=== PATIENT | male | born 1945 | race Caucasian/White ===

== ENCOUNTER 2018-07-02 18:41 | Inpatient (IN) | payer MEDICARE ==
[~2018-07-02] VITALS: Ht 172.7 cm; Wt 84.2 kg
--- NOTE | 2018-07-02 19:30 | NUR ---
ASSUMED CARE OF PATIENT, HE IS SITTING UP ON STRETCHER AT THIS TIME ON VENTIMASK, STATES HE IS BREATHING MUCH BETTER. WITHOUT DISTRESS AT THIS TIME, TRANSFERRED FROM [facility]. STATES HIS FAMILY IS ON THEIR WAY HERE. HAS A NECROTIC ARE TO HIS RIGHT ANKLE, FOOT ELEVATED UP ON A FOLDED BLANKET.
[2018-07-02 20:24] LABS: HEMATOCRIT 29.4 % (42.0-54.0); HEMOGLOBIN 9.2 g/dL (13.5-17.5); MCH 28.9 pg (26.0-34.0); MCHC 31.3 g/dL (31.0-37.0); MCV 92.5 fL (80.0-100.0); PLATELET COUNT 105 10x3/uL (130-400); RBC 3.18 10x6/uL (4.20-6.10); RDW 22.4 % (11.5-14.5); WBC 4.4 10x3/uL (4.8-10.8)
[2018-07-02 20:52] LABS: CKMB 3.3 U/L (0.0-3.6); CREATINE KINASE 99 UL (21-232); PRO BNP 4890 pg/mL (0-125)
[2018-07-02 20:57] LABS: TROPONIN-I 1.123 ng/mL (0.000-0.060)
[2018-07-02 21:01] VITALS: BP 101/41
[2018-07-02 21:21] LABS: EOSINOPHILS 1 % (0-7); LYMPHOCYTES 15 % (15-50); MONOCYTES 1 % (2-11); NEUTROPHILS 83 % (40-80); PLATELET ESTIMATE DECREASED
[2018-07-02 21:24] LABS: BURR CELLS 1+; ELLIPTOCYTES 1+
[2018-07-02 21:59] VITALS: BP 116/63
--- NOTE | 2018-07-02 22:00 | NUR ---
CALLED TO THE ROOM BY PATIENT, STATES HE IS HAVING CHEST PAIN A 4/10, EKG REPEATED, MD NOTIFIED, MORPHINE GIVEN.
--- NOTE | 2018-07-02 22:20 | NUR ---
PATIENT DENIES CHEST PAIN AT THIS TIME, FAMILY AT BEDSIDE.
--- NOTE | 2018-07-02 22:25 | NUR ---
ATTEMPTED TO CALL REPORT, WAS PUT ON HOLD FOR THE SECOND TIME.
--- NOTE | 2018-07-02 23:15 | NUR ---
THE PATIENT WAS RECEIVED FROM ED. PRESENT. BED IS IN THE LOW POSITION WITH SIDERAILS X2 AND CALL LIGHT WITHIN REACH. THE PATIENT AND HIS WERE EDUCATED ON EUSE OF A CALL LIGHT AND THE NEED TO CALL STAFF WHENEVER THE PATIENT NEEDS TO GET OUT OF BED. PATIENT AND HIS DEMONSTRATE UNDERSTANDING VIA TEACHBACK METHOD. THE PATIENT APPEARS COMFORTABLE WITH NO QUESTIONS OR CONCERNS AT THIS TIME.
[2018-07-02 23:25] VITALS: BP 117/61
--- NOTE | 2018-07-03 03:31 | NUR ---
PATIENT APPEARS TO BE SLEEPING. BED IS IN THE LOW POSITION WITH SIDERAILS X2 AND CALL LIGHT WITHIN REACH. REMAINS WITH THE PATIENT.
[2018-07-03 04:00] VITALS: BP 106/60
[2018-07-03 05:39] LABS: ANION GAP 20.5 mmol/L (8-16); CREATININE - SERUM 2.2 mg/dL (0.6-1.3); POTASSIUM - SERUM 4.5 mmol/L (3.5-5.1); THYROID STIMULATING HORMONE 0.76 uIU/mL (0.36-3.74)
[2018-07-03 06:06] LABS: CALCIUM 6.9 mg/dL (8.5-10.1); TROPONIN-I 0.619 ng/mL (0.000-0.060)
--- NOTE | 2018-07-03 09:00 | NUR ---
PT IN BED. ALERT AND ORIENTED. O2 AT 4L VIA NC. LEFT AC 20G IV SL. ST ON THE MONITOR. AT BEDSIDE. PT HAS NO FURTHER NEEDS AT THIS TIME.
[2018-07-03 10:15] VITALS: BP 105/61
[2018-07-03 11:46] LABS: % SATURATION 9 % (15-55); IRON 23 ug/dl (35-150); TOTAL IRON BIND CAPACITY 255 ug/dl (260-445); UNSAT IRON BIND CAPACITY 232 ug/dl (150-375)
[2018-07-03] MEDS ORDERED: NORVASC5 MG PO (11:50)
[2018-07-03] MEDS ORDERED: BAYER CHEWABLE81 MG PO (11:50)
[2018-07-03] MEDS ORDERED: LIPITOR80 MG PO (11:51)
[2018-07-03] MEDS ORDERED: PLAVIX75 MG PO (11:51)
[2018-07-03] MEDS ORDERED: ALDACTONE25 MG PO (11:52)
[2018-07-03] MEDS ORDERED: ENTRESTO 24 MG1 EACH PO (11:54)
[2018-07-03] MEDS ORDERED: TOPROL XL50 MG PO (11:55)
[2018-07-03] MEDS ORDERED: NITROSTAT0.4 MG SL (11:56)
[2018-07-03] MEDS ORDERED: ISOSORBIDE MONO60 M1 PO (11:58)
[2018-07-03] MEDS ORDERED: RANEXA1000 MG PO (11:58)
[2018-07-03] MEDS ORDERED: REVLIMID5 MG PO (11:59)
[2018-07-03] MEDS ORDERED: PROTONIX FOR OR40 MG PT (12:00)
[2018-07-03] MEDS ORDERED: GLUCOTROL 5 MG T5 MG PO (12:03)
[2018-07-03] MEDS ORDERED: NOVOLIN 70/30 110 ML SC (12:03)
[2018-07-03 12:04] LABS: CKMB 2.5 U/L (0.0-3.6); CREATINE KINASE 106 UL (21-232); FERRITIN 143 ng/mL (3-244)
[2018-07-03] MEDS ORDERED: MAG-OXIDE400 MG PO (12:04)
[2018-07-03] MEDS ORDERED: CO Q-10100 MG PO (12:04)
[2018-07-03] MEDS ORDERED: VITAMIN B-121000 MCG PO (12:05)
[2018-07-03] MEDS ORDERED: FEOSOL LIQ300 MG/5 M PO (12:06)
[2018-07-03 12:10] LABS: TROPONIN-I 0.563 ng/mL (0.000-0.060)
--- NOTE | 2018-07-03 12:21 | NUR ---
SPOKE WITH JAZMINE LANGLEY AND SHE STATES TO RESUME HOME MEDS BUT VITAMIN B-12, REVLMID, NORVASC, CO Q-10, AND NOVOLIN. SHE STATES TO CHANGE PT FROM LOW SLIDING SCALE TO HIGH SLIDING SCALE. I VERBALIZED UNDERSTANDING.
[2018-07-03 12:52] VITALS: Ht 172.7 cm; Wt 84.2 kg
--- NOTE | 2018-07-03 15:03 | EC ---
PATIENT:ANN ORTIZ DATE OF SERVICE: 07/02/18 SEX: M MEDICAL RECORD: [id number] DATE OF : 43 LOCATION:D.M2 D.210 AGE OF PATIENT: 73 ADMISSION DATE: 07/02/18 REFERRING PHYSICIAN: INTERPRETING PHYSICIAN: JORGE A PADGETT MD ECHOCARDIOGRAM REPORT ECHO CHARGES 4 ECHO COMPLETE Date: 07/03/18 CLINICAL DIAGNOSIS: CHF/SOB HX OF CAD/CABG ECHOCARDIOGRAPHIC MEASUREMENTS (adult normal given) AC root (d.<3.7cm) 3.3 cm LV Septum d (<1.2 cm> 1.3 cm Valve Excursion 1.3 cm LV Septum (systole) 1.5 cm Left Atria (s.<4.0cm> 5.7 cm LVPW d(<1.2cm) 1.5 cm RV (d.<2.3cm) 3.6 cm LVPW (sytole) 1.6 cm LV diastole(<5.6CM) 6.8 cm MV E-F(>70mm/sec) cm LV systole 5.7 cm LVOT Diameter 1.8 cm MV exc.(>10mm) 1.4 cm Est.ejection fraction (50-75%) % DOPPLER: LVIT cm/sec A 145 cm/sec E 36.0 cm/sec LA cm/sec RVSP 30 mmHg LVOT 110 cm/sec AOP1/2T m/s Asc. Ao 134 cm/sec RVOT cm/sec RA cm/sec PA cm/sec AV Gradient Peak 7.23 mmHg AV Mean 4.30 mmHg AV Area 1.9 cm MV Gradient Peak 11.70mmHg MV Mean 4.22 mmHg MV Area cm COMMENTS: Helpdesk Specialist: Mary GOLDEN Interactive Developer: 1 Dr. Padgett TAPE# PACS Pericardial Effusion N DATE OF SERVICE: 07/03/2018 ECHOCARDIOGRAM DATE OF SERVICE: 07/03/2018 FINDINGS: 1. Left ventricular chamber size is within normal limits. Left chamber size is mildly dilated. Left ventricular systolic function is jngj-fa-dyfjnbercc reduced, overall ejection fraction of 35% to 40%. ECHOCARDIOGRAM REPORT [id number] ANN ORTIZ 2. Left atrium is enlarged at 5.7 cm. Right atrium and right ventricular chamber sizes are as well mildly dilated. 3. Valvular structures have normal structure and motion. 4. Doppler interrogation reveals moderate mitral regurgitation, jhxv-cf-plzggvsv tricuspid regurgitation, no other valvular insufficiency or stenosis. Pulmonary systolic pressure is preserved at 30 mmHg. 5. No evidence of pericardial effusion or left ventricular thrombus. TRANSINT:[id number] Voice Confirmation ID: [id number] DOCUMENT ID: [id number] JORGE A PADGETT MD at 1503 CC: [id number] DICTATION DATE: 07/03/18 1324 CUSTOMER COMPLAINT SERVICE SUPERVISOR: 07/03/18 1339 ADM IN [place] [address] [place] [address]
--- NOTE | 2018-07-03 15:03 | CN ---
PATIENT NAME:ANN ORTIZ MEDICAL RECORD: [id number] : 43 LOCATION:D. D.2109 ADMIT DATE: 07/02/18 ACCOUNT: [id number] CONSULTING PHYSICIAN: JORGE A PEREZ MD REFERRING PHYSICIAN: RADHA MONROE MD DATE OF CONSULTATION: 07/03/2018 CARDIOLOGY CONSULTATION DATE OF SERVICE: 07/03/2018 DIAGNOSES: 1. Atrial fibrillation. 2. Tachycardia. 3. Shortness of breath. 4. Elevated troponin. 5. Peripheral vascular disease. 6. Nonhealing ulcer, right foot. 7. Multiple myeloma. 8. Renal insufficiency. 9. Hypotension. HISTORY OF PRESENT ILLNESS: This is a gentleman who presents to [facility] with shortness of breath, was transferred here. He has a history of multiple myeloma that is in remission. He has a history of atrial fibrillation. He is followed by Dr. Bright at [facility] [place]. He had a cardiac catheterization last year. This was normal. No cardiac intervention was undertaken. He did have peripheral interventions and still has a nonhealing ulcer on his right foot. He has had shortness of breath, but no significant chest pain. His troponin is elevated. His EKG has no ST-T changes. He is in atrial fibrillation with rapid ventricular response. He does not know his medications. He was given an IV amiodarone bolus here as well as oral amiodarone. PHYSICAL EXAMINATION: GENERAL APPEARANCE: Well-nourished, well-developed, appears stated age. Level of distress, comfortable. PSYCHIATRIC: Mental status, alert, normal affect. Orientation, oriented to time, place and person. EYES: Lids and conjunctiva, noninjected. No discharge, no pallor. ENT: Lips, teeth, gums, normal dentition. Oropharynx, no cyanosis, no pallor. NECK: Carotid arteries, bilateral normal upstroke, no bruits, no thrills. JUGULAR VEINS: No jugular venous pressure or distention. CERVICAL LYMPH NODES: Nontender, nonenlarged. THYROID: Not enlarged. Nontender. No nodules. LUNGS: Respiratory effort, unlabored. CHEST: Normal curvature. No thoracic deformity. No chest wall tenderness. Percussion, resonant. Auscultation, clear. No wheezes, no rales, no rhonchi. CARDIOVASCULAR: Precordial exam, nondisplaced. No heaves or pericardial thrills. Rate and rhythm, regular. Heart sounds, normal S1, normal S2. No S3, no gallop, no rub. Systolic murmur, not heard. Diastolic murmur, not heard. EXTREMITIES: No cyanosis, no edema. Peripheral pulses, full and equal in all extremities, except as noted. No bruits appreciated. ABDOMEN: Soft, nondistended. Normal aorta. No bruit. Nontender. No masses. Liver, nontender, no hepatomegaly. Spleen, nontender, no splenomegaly. MUSCULOSKELETAL: No joint tenderness. No joint swelling. No erythema. CONSULT REPORT [id number] ANN ORTIZ NEUROLOGICAL: Normal gait, normal strength, normal tone. SKIN: Warm and dry. OVERALL IMPRESSION: Atrial fibrillation with his hypotension with systolic blood pressures in the 90s. We will use digoxin for rate control 0.5 mg IV times 1. We will discontinue the amiodarone. The atrial fibrillation is not acute, it is chronic. With the elevated troponin, we would not proceed with coronary angiography, not only from the risk of contrast but the fact that he had coronary angiography within the last year and no cardiac intervention was undertaken. He is still followed at [facility] for his peripheral vascular disease, which he still has a nonhealing ulcer on his right lower extremity. We would not subject him to acute revascularization at this time. We will get an echocardiogram for overall left ventricular assessment. Would only center medical management from a cardiac standpoint on treatment of the atrial fibrillation, rate control. TRANSINT:[id number] Voice Confirmation ID: [id number] DOCUMENT ID: [id number] JORGE A PEREZ MD at 1503 CC: [id number] DICTATION DATE: 07/03/18 0825 ORDER CHECKER: 07/03/18 1119 ADM IN [facility] [address] [place] [address]
[2018-07-03 16:41] LABS: CKMB 2.4 U/L (0.0-3.6); CREATINE KINASE 105 UL (21-232)
[2018-07-03 16:43] LABS: TROPONIN-I 0.507 ng/mL (0.000-0.060)
--- NOTE | 2018-07-03 17:30 | NUR ---
CALLED MEAT AND SEAFOOD MANAGER AND SHE STATES SHE WILL BRING SCD MACHINE.
[2018-07-03 17:36] VITALS: BP 114/63
[2018-07-03 20:00] VITALS: BP 104/60
--- NOTE | 2018-07-03 20:50 | NUR ---
RESUMING PT CARE. PT ALERT LAYING IN BED. IS AT BEDSIDE. NO C/O VOICED. NO ACUTE S/S OF DISTRESS NOTED AT THIS TIME. BED IN LOW POSITION WITH CALL LIGHT IN REACH. WILL CONTINUE TO MONITOR PT AND FOLLOW PLAN OF CARE.
[2018-07-03 22:21] LABS: CKMB 2.3 U/L (0.0-3.6); CREATINE KINASE 108 UL (21-232)
[2018-07-03 22:33] LABS: TROPONIN-I 0.504 ng/mL (0.000-0.060)
[2018-07-04] VITALS: BP 102/54
[2018-07-04 00:38] LABS: APPEARANCE CLEAR (CLEAR); BILIRUBIN NEGATIVE (NEGATIVE); COLOR YELLOW (YELLOW); GLUCOSE 250 mg/dL (NEGATIVE); KETONE NEGATIVE (NEGATIVE); NITRITE NEGATIVE (NEGATIVE); PROTEIN NEGATIVE (NEGATIVE); SPECIFIC GRAVITY 1.015 (1.005-1.020); UROBILINOGEN NORMAL (NORMAL)
--- NOTE | 2018-07-04 02:48 | NUR ---
I have reviewed this patient and I concur with the Shift Assessment completed by the Licensed Practical Nurse today this shift.
[2018-07-04 04:00] VITALS: BP 98/55
[2018-07-04 05:40] LABS: HEMATOCRIT 26.9 % (42.0-54.0); HEMOGLOBIN 8.4 g/dL (13.5-17.5); MCH 28.7 pg (26.0-34.0); MCHC 31.2 g/dL (31.0-37.0); MCV 91.8 fL (80.0-100.0); PLATELET COUNT 90 10x3/uL (130-400); RBC 2.93 10x6/uL (4.20-6.10)
[2018-07-04 05:42] LABS: ANION GAP 16.6 mmol/L (8-16); POTASSIUM - SERUM 4.6 mmol/L (3.5-5.1)
[2018-07-04 05:54] LABS: CALCIUM 6.7 mg/dL (8.5-10.1)
[2018-07-04 07:05] LABS: LYMPHOCYTES 17 % (15-50); MONOCYTES 5 % (2-11); NEUTROPHILS 78 % (40-80); PLATELET ESTIMATE DECREASED
--- NOTE | 2018-07-04 07:30 | NUR ---
RECEIVED A/A/OX4. DENIES ANY PAIN OR DISCOMFORT AND VOICES NO REQUESTS. ASSESSMENT COMPLETED. BED LOCKED IN LOW POSITION, SIDERAILS UP X 2 AND CALL LIGHT IN REACH. AT BEDSIDE. NO APPARENT NEW PROBLEMS. WILL CONTINUE POC.
[2018-07-04 08:50] VITALS: BP 111/56
[2018-07-04 09:12] LABS: FOLATE (FOLIC ACID) - SERUM >20.0 ng/mL (>3.0)
--- NOTE | 2018-07-04 14:03 | NUR ---
I have reviewed this patient and I concur with the Shift Assessment completed by the Licensed Practical Nurse today this shift.
[2018-07-04 14:47] VITALS: BP 109/58
--- NOTE | 2018-07-04 16:07 | NUR ---
PT INSTRUCTED ON NEW ORDER FOR STRICT I/O. URINAL PLACED IN BR FOR USE.
[2018-07-04 18:45] VITALS: BP 107/46
--- NOTE | 2018-07-04 19:00 | NUR ---
ALERT/AWAKE ORIENTED X4. DENIES PAIN OR ANY NEEDS. RR 20 EVEN U/L ON 02 AT 4L/NC. HIS IS PRESENT IN ROOM. NO QUESTIONS OR CONCERNS VOICED. ORIENTED TO CALL LIGHT FOR ANY NEEDS.
[2018-07-04 20:00] VITALS: BP 118/49
--- NOTE | 2018-07-04 23:42 | NUR ---
REQUESTED LIGHTS OFF AND DOOR CLOSED TO SLEEP. NO OTHER NEEDS VOICED.
[2018-07-05] VITALS: BP 91/56
[2018-07-05 04:52] LABS: BASOPHILS 0.3 % (0-2); EOSINOPHILS 0 % (0-7); HEMATOCRIT 28.1 % (42.0-54.0); HEMOGLOBIN 8.6 g/dL (13.5-17.5); IMMATURE GRANULOCYTES 2.3 % (0-5); LYMPHOCYTES 24.8 % (15-50); MCH 28.6 pg (26.0-34.0); MCHC 30.6 g/dL (31.0-37.0); MCV 93.4 fL (80.0-100.0); MONOCYTES 18.2 % (2-11); NEUTROPHILS 54.4 % (40-80); PLATELET COUNT 88 10x3/uL (130-400); RBC 3.01 10x6/uL (4.20-6.10); RDW 21.6 % (11.5-14.5); WBC 3.9 10x3/uL (4.8-10.8)
[2018-07-05 04:59] LABS: ANION GAP 15.2 mmol/L (8-16); CREATININE - SERUM 1.7 mg/dL (0.6-1.3); POTASSIUM - SERUM 5.2 mmol/L (3.5-5.1)
[2018-07-05 05:01] LABS: CALCIUM 6.7 mg/dL (8.5-10.1)
[2018-07-05 05:08] VITALS: BP 122/66
--- NOTE | 2018-07-05 05:45 | NUR ---
SITTING ON SIDE OF BED READING. ADMIN SCHED PO MED. DENIES ANY NEEDS OR DISCOMFORTS. HIS IS PRESENT IN ROOM.
--- NOTE | 2018-07-05 07:14 | NUR ---
PATIENT AWAKE AND ORIENTED, PROMISES TO BENICE AND NOT GICE ME A HARD TIME TODAY. NO QUESTIONS/CONCERNS/COMMENTS AT THIS TIME. CL IN REACH. SRX2.
--- NOTE | 2018-07-05 08:53 | NUR ---
PT STATES HE IS HAVING CHEST PAIN. IT'S IN CHEST RADIATING TO L. ARM. V/S: 100% 02, 138/67, 126, 22. AFLUTTER ON MONITOR.
[2018-07-05 09:04] VITALS: BP 123/67
--- NOTE | 2018-07-05 09:50 | NUR ---
I have reviewed this patient and I concur with the Shift Assessment completed by the Licensed Practical Nurse today this shift.
[2018-07-05 11:11] VITALS: BP 136/73
[2018-07-05 16:42] VITALS: BP 103/37
--- NOTE | 2018-07-05 17:25 | NUR ---
PT OBTAINED SKIN TEAR ON RIGHT UPPER ARM, DRESSED WITH NON ADHESIVE. STATES HE DOES'NT KNOW HOW HE GOT IT, BUT THIS HAPPENS OFTEN.
--- NOTE | 2018-07-05 19:38 | NUR ---
SITTING ON SIDE OF BED. ALERT/ORIENTED X4. RR 20 EVEN U/L ON 02 AT 4L/NC. IV IN L AC INTACT SL. RT HEEL DRSG C/D/I. STATED HE HAS BEEN KEEPING IT ON PILLOW WHEN LAYING IN BED. DENIES ANY NEEDS.
[2018-07-05 20:04] VITALS: BP 95/66
[2018-07-06 00:36] VITALS: BP 110/53
--- NOTE | 2018-07-06 04:26 | NUR ---
MANAGER PHARMACEUTICAL PRESENT IN ROOM TAKING VS. DENIES ANY NEEDS. HIS IS PRESENT IN ROOM SLEEPING IN RECLINER.
[2018-07-06 04:35] VITALS: BP 111/69
[2018-07-06 05:59] LABS: HEMATOCRIT 28.3 % (42.0-54.0); HEMOGLOBIN 8.8 g/dL (13.5-17.5); MCH 28.9 pg (26.0-34.0); MCHC 31.1 g/dL (31.0-37.0); MCV 92.8 fL (80.0-100.0); PLATELET COUNT 89 10x3/uL (130-400); RBC 3.05 10x6/uL (4.20-6.10); RDW 21.1 % (11.5-14.5); WBC 4.3 10x3/uL (4.8-10.8)
[2018-07-06 06:14] LABS: ANION GAP 14.2 mmol/L (8-16); CARBON DIOXIDE 24.3 mmol/L (21.0-32.0); CREATININE - SERUM 1.6 mg/dL (0.6-1.3); POTASSIUM - SERUM 5.5 mmol/L (3.5-5.1)
[2018-07-06 06:24] LABS: CALCIUM 6.8 mg/dL (8.5-10.1)
[2018-07-06 07:00] VITALS: BP 102/57
[2018-07-06 08:53] LABS: EOSINOPHILS 1 % (0-7); LYMPHOCYTES 22 % (15-50); MONOCYTES 11 % (2-11); NEUTROPHILS 58 % (40-80); PLATELET ESTIMATE DECREASED
[2018-07-06 08:54] LABS: ACANTHOCYTES OCC; CRENATED CELLS 1+; ELLIPTOCYTES OCC; SCHISTOCYTES OCC
[2018-07-06] MEDS ORDERED: TOPROL XL50 MG PO (13:21)
[2018-07-06] MEDS ORDERED: ALBUTEROL SULF8.5 GM INH (14:00)
--- NOTE | 2018-07-06 14:27 | MORECARE ---
CASE MANAGEMENT DISCHARGE SUMMARY PATIENT: ANN ORTIZ UNIT: [id number] ADM DATE: 07/02/18 AGE: 73 : 44 SEX: M ROOM/BED: D.2109 AUTHOR: JUAN ANTONIO ARNOLD PHYSICIAN: REFERRING PHYSICIAN: RADHA MONROE MD DATE OF SERVICE: 07/06/18 Discharge Plan Patient Name: ANN ORTIZ Facility: [facility]:[place] : 1945 Planned Disposition: Home Anticipated Discharge Date: 07/06/18 Discharge Date: Expected LOS: 4 Initial Reviewer: [email or web address] Initial Review Date: 07/06/2018 Generated: 07/06/18 3:27 pm DCPIA - Discharge Planning Initial Assessment Updated by SCOTT: Romeo Olivarez on 07/06/18 2:25 pm * Is the patient Alert and Oriented? Yes * How many steps to enter\exit or inside your home? * PCP DR. ANN IN [place] * Pharmacy [facility] [place] * Preadmission Environment Home with Family * ADLs Independent * Equipment Walker * Other Equipment [facility] PATIENT - PREFERRED PROVIDER * List name and contact numbers for known caregivers / representatives who currently or will assist patient after discharge: JENNIFER ORTIZ, SPOUSE, * Verbal permission to speak to the caregivers and representatives has been obtained from the patient. N/A * Community resources currently utilized None * Please name any agencies selected above. NONE * Additional services required to return to the preadmission environment? Yes * Can the patient safely return to the preadmission environment? Yes * Has this patient been hospitalized within the prior 30 days at any hospital? No Coverage Notice Reviewer: [id number] Olivarez Notice Issued Date-Time: 07/06/2018 14:10 Notice Type: IM Discharge Notice Notice Delivered To: Patient Relationship to Patient: Fiberglass Boat Parts Finisher Name: Delivery Method: HAND - Hand Delivered Shilpa Days: Prior Verbal Notification: Recipient Understood Notice: Yes Recipient Signature: Yes Med Rec Note Co-signed by Attending: Coverage Notice Comment: Reviewer: [id number] Olivarez Notice Issued Date-Time: 07/06/2018 14:10 Notice Type: Patient Choice Letter Notice Delivered To: Patient Relationship to Patient: Fiberglass Boat [employer] Finisher Name: Delivery Method: HAND - Hand Delivered Shilpa Days: Prior Verbal Notification: Recipient Understood Notice: Yes Recipient Signature: Yes Med Rec Note Co-signed by Attending: Coverage Notice Comment: CITIZEN OF [facility] PATIENT Patient Name: ANN ORTIZ Page [id number] at 1427 All edits/amendments must be made on the electronic document DICTATION DATE: 07/06/181426 ACADEMIC COMPUTING DIRECTOR: ARNULFO 07/06/181426 RPT#: [id number] DC DATE: STATUS: ADM IN [facility] [address] [place] [address] END OF REPORT
--- NOTE | 2018-07-06 14:35 | MORECARE ---
CASE MANAGEMENT DISCHARGE SUMMARY PATIENT: ANN ORTIZ UNIT: [id number] ADM DATE: 07/02/18 AGE: 73 : 44 SEX: M ROOM/BED: D.2186 AUTHOR: CLAYTONDOC PHYSICIAN: REFERRING PHYSICIAN: RADHA MONROE MD DATE OF SERVICE: 07/06/18 Discharge Plan Patient Name: ANN ORTIZ Facility: [facility]:[place] : 1945 Planned Disposition: Home Anticipated Discharge Date: 07/06/18 Discharge Date: Expected LOS: 4 Initial Reviewer: [email or web address] Initial Review Date: 07/06/2018 Generated: 07/06/18 3:35 pm Comments DCP- Discharge Planning Updated by [email or web address]: Romeo Olivarez on 07/06/18 1:[address] Patient Name: ANN ORTIZ Admission Status: ER Accout number: [id number] Admission Date: 07-02-2018 : 1945 Admission Diagnosis:SHORTNESS OF BREATH Attending: RADHA MONROE Current LOS: 4 Anticipated DC Date: 07-06-2018 Planned Disposition: Home Primary Insurance: [facility] MEDICARE SOLUTIONS Discharge Planning Comments: CM MET WITH PT AND SPOUSE IN ROOM TO DISCUSS DISCHARGE PLANNING AND NEEDS. ANN ORTIZ provided verbal consent to discuss current and ongoing needs with/in the presence of: SPOUSE, JENNIFER. PT REPORTS LIVING AT HOME INDEPENDENTLY WITH SPOUSE. PT HAS WALKER WITH NO MEDICAL EQUIPMENT PROVIDER PREFERENCE. PT H NO OUTSIDE SERVICES ASSISTING IN THE HOME. CM DISCUSSED AVAILABILITY OF HOME HEALTH, REHAB SERVICES AND MEDICAL EQUIPMENT. PT DENIES DISCHARGE NEEDS OTHER THAN OXYGEN; PT PROVIDED LISTING OF MEDICAL EQUIPMENT PROVIDERS, PT SIGNED CHOICE FOR [facility]IENT, REPORTS HIS WILL PICK HIM UP FOR DISCHARGE HOME TODAY. IMPORTANT MESSAGE FROM MEDICARE PROVIDED AND EXPLAINED. CM WAITING OXYGEN TESTING RESULTS AND IF QUALIFIES, WILL ARRANGE OXYGEN WITH [facility] FOR DISCHARGE HOME TODAY. Petroleum Engineer: Romeo Olivarez DCPIA - Discharge Planning Initial Assessment Updated by [id number]: Romeo Olivarez on 07/06/18 2:25 pm * Is the patient Alert and Oriented? Yes * How many steps to enter\exit or inside your home? * PCP DR. ANN IN [place] * Pharmacy [facility] [place] * Preadmission Environment Home with Family * ADLs Independent * Equipment Walker * Other Equipment [facility] PATIENT - PREFERRED PROVIDER * List name and contact numbers for known caregivers / representatives who currently or will assist patient after discharge: JENNIFER ORTIZ, SPOUSE, * Verbal permission to speak to the caregivers and representatives has been obtained from the patient. N/A * Community resources currently utilized None * Please name any agencies selected above. NONE * Additional services required to return to the preadmission environment? Yes * Can the patient safely return to the preadmission environment? Yes * Has this patient been hospitalized within the prior 30 days at any hospital? No Coverage Notice Reviewer: [email or web address] Olivarez Notice Issued Date-Time: 07/06/2018 14:10 Notice Type: IM Discharge Notice Notice Delivered To: Patient Relationship to Patient: Hot Car Charger Name: Delivery Method: HAND - Hand Delivered Shilpa Days: Prior Verbal Notification: Recipient Understood Notice: Yes Recipient Signature: Yes Med Rec Note Co-signed by Attending: Coverage Notice Comment: Reviewer: SCOTT Olivarez Notice Issued Date-Time: 07/06/2018 14:10 Notice Type: Patient Choice Letter Notice Delivered To: Patient Relationship to Patient: Hot Car Charger Name: Delivery Method: HAND - Hand Delivered Shilpa Days: Prior Verbal Notification: Recipient Understood Notice: Yes Recipient Signature: Yes Med Rec Note Co-signed by Attending: Coverage Notice Comment: [facility] PATIENT Last DP export: 07/06/18 1:27 pm Patient Name: ANN ORTIZ Page [phone] at 1435 All edits/amendments must be made on the electronic document DICTATION DATE: 07/06/181433 DIRECTOR INTELLIGENCE ANALYSIS PROGRAMS: ARNULFO 07/06/18 143 RPT#: [id number] DC DATE: STATUS: ADM IN [facility] [address] [place] [address] END OF REPORT
--- NOTE | 2018-07-06 15:02 | MORECARE ---
CASE MANAGEMENT DISCHARGE SUMMARY PATIENT: ANN ORTIZ UNIT: [id number] ADM DATE: 07/02/18 AGE: 73 : 44 SEX: M ROOM/BED: D.2109 AUTHOR: JUAN ANTONIO ARNOLD PHYSICIAN: REFERRING PHYSICIAN: RADHA MONROE MD DATE OF SERVICE: 07/06/18 Discharge Plan Patient Name: ANN ORTIZ Facility: [facility]:[place] : 1945 Planned Disposition: Home Anticipated Discharge Date: 07/06/18 Discharge Date: Expected LOS: 4 Initial Reviewer: [email or web address] Initial Review Date: 07/06/2018 Generated: 07/06/18 4:02 pm Comments DCP- Discharge Planning Updated by [email or web address]: Romeo Vázquez on 07/06/18 1:[address] Patient Name: ANN ORTIZ Admission Status: ER Accout number: [id number] Admission Date: 07-02-2018 : 1945 Admission Diagnosis:SHORTNESS OF BREATH Attending: RADHA MONROE Current LOS: 4 Anticipated DC Date: 07-06-2018 Planned Disposition: Home Primary Insurance: [facility] MEDICARE SOLUTIONS Discharge Planning Comments: CM MET WITH PT AND SPOUSE IN ROOM TO DISCUSS DISCHARGE PLANNING AND NEEDS. ANN ORTIZ provided verbal consent to discuss current and ongoing needs with/in the presence of: SPOUSE, JENNIFER. PT REPORTS LIVING AT HOME INDEPENDENTLY WITH SPOUSE. PT HAS WALKER WITH NO MEDICAL EQUIPMENT PROVIDER PREFERENCE. PT H NO OUTSIDE SERVICES ASSISTING IN THE HOME. CM DISCUSSED AVAILABILITY OF HOME HEALTH, REHAB SERVICES AND MEDICAL EQUIPMENT. PT DENIES DISCHARGE NEEDS OTHER THAN OXYGEN; PT PROVIDED LISTING OF MEDICAL EQUIPMENT PROVIDERS, PT SIGNED CHOICE FOR [facility], REPORTS HIS WILL PICK HIM UP FOR DISCHARGE HOME TODAY. IMPORTANT MESSAGE FROM MEDICARE PROVIDED AND EXPLAINED. CM WAITING OXYGEN TESTING RESULTS AND IF QUALIFIES, WILL ARRANGE OXYGEN WITH [facility] FOR DISCHARGE HOME TODAY. Suspect Artist: Romeo Vázquez Appended by Romeo Vázquez on 07/06/2018 14:52 CDT: CM SPOKE TO RESPIRATORY THERAPY, PT DID NOT QUALIFY FOR HOME OR PORTABLE OXYGEN. NO FURTHER DISCHARGE NEEDS IDENTIFIED. ROMEO VÁZQUEZ CASE RONAL DCPIA - Discharge Planning Initial Assessment Updated by [email or web address]: Romeo Vázquez on 07/06/18 2:25 pm * Is the patient Alert and Oriented? Yes * How many steps to enter\exit or inside your home? * PCP DR. ANN IN [place] * Pharmacy [facility] [place] * Preadmission Environment Home with Family * ADLs Independent * Equipment Walker * Other Equipment [facility] PATIENT - PREFERRED PROVIDER * List name and contact numbers for known caregivers / representatives who currently or will assist patient after discharge: JENNIFER ORTIZ, SPOUSE, * Verbal permission to speak to the caregivers and representatives has been obtained from the patient. N/A * Community resources currently utilized None * Please name any agencies selected above. NONE * Additional services required to return to the preadmission environment? Yes * Can the patient safely return to the preadmission environment? Yes * Has this patient been hospitalized within the prior 30 days at any hospital? No Coverage Notice Reviewer: [id number] Adán Vázquez Notice Issued Date-Time: 07/06/2018 14:10 Notice Type: IM Discharge Notice Notice Delivered To: Patient Relationship to Patient: Press Maintainer Name: Delivery Method: HAND - Hand Delivered Shilpa Days: Prior Verbal Notification: Recipient Understood Notice: Yes Recipient Signature: Yes Med Rec Note Co-signed by Attending: Coverage Notice Comment: Reviewer: [id number] Adán Vázquez Notice Issued Date-Time: 07/06/2018 14:10 Notice Type: Patient Choice Letter Notice Delivered To: Patient Relationship to Patient: Press Maintainer Name: Delivery Method: HAND - Hand Delivered Shilpa Days: Prior Verbal Notification: Recipient Understood Notice: Yes Recipient Signature: Yes Med Rec Note Co-signed by Attending: Coverage Notice Comment: [facility] PATIENT Last DP export: 07/06/18 1:35 pm Patient Name: ANN ORTIZ Page [phone] at 1502 All edits/amendments must be made on the electronic document DICTATION DATE: 07/06/18 1501 CENTRAL STERILIZATION TECHNICIAN: ARNULFO 07/06/18 1501 RPT#: [id number] DC DATE: STATUS: ADM IN [facility] [address] [place] [address] END OF REPORT
== END 2018-07-06 15:52 | disposition home or self-care (01) | DRG 291 ==
LOC: D.ER 18:41 → D.EDHOLD 21:12 → D.M2 21:12
PROVIDERS: Emergency Medicine; ADMIT Internal Medicine Nephrology; ATTEND Internal Medicine Nephrology
DX: I13.0 Hypertensive heart and chronic kidney disease with heart failure and stage 1 through stage 4 chronic kidney disease, or unspecified chronic kidney disease (principal); J18.9 Pneumonia, unspecified organism; J96.01 Acute respiratory failure with hypoxia; I50.33 Acute on chronic diastolic (congestive) heart failure; I48.92 Unspecified atrial flutter; J44.1 Chronic obstructive pulmonary disease with (acute) exacerbation; L97.429 Non-pressure chronic ulcer of left heel and midfoot with unspecified severity; J44.0 Chronic obstructive pulmonary disease with (acute) lower respiratory infection; I48.91 Unspecified atrial fibrillation; E11.22 Type 2 diabetes mellitus with diabetic chronic kidney disease; N18.2 Chronic kidney disease, stage 2 (mild); D50.9 Iron deficiency anemia, unspecified; E78.5 Hyperlipidemia, unspecified; I25.10 Atherosclerotic heart disease of native coronary artery without angina pectoris; E11.51 Type 2 diabetes mellitus with diabetic peripheral angiopathy without gangrene; E11.621 Type 2 diabetes mellitus with foot ulcer; Z85.79 Personal history of other malignant neoplasms of lymphoid, hematopoietic and related tissues

== ENCOUNTER 2018-07-24 15:19 | Observation (INO) | payer MEDICARE ==
[~2018-07-24] VITALS: Ht 172.7 cm; Wt 75.8 kg
[~2018-07-24 15:19] MED LIST: ALBUTEROL SULF8.5 GM INH; ALDACTONE25 MG PO; BAYER CHEWABLE81 MG PO; CO Q-10100 MG PO; ENTRESTO 24 MG1 EACH PO; FEOSOL LIQ300 MG/5 M PO; GLUCOTROL 5 MG T5 MG PO; ISOSORBIDE MONO60 M1 PO; LIPITOR80 MG PO; MAG-OXIDE400 MG PO; NITROSTAT0.4 MG SL; NORVASC5 MG PO; NOVOLIN 70/30 110 ML SC; PLAVIX75 MG PO; PROTONIX FOR OR40 MG PT; RANEXA1000 MG PO; REVLIMID5 MG PO; TOPROL XL50 MG PO; VITAMIN B-121000 MCG PO
[2018-07-24 15:53] LABS: EOSINOPHILS 2.8 % (0-7); HEMATOCRIT 32.9 % (42.0-54.0); HEMOGLOBIN 10.6 g/dL (13.5-17.5); LYMPHOCYTES 36.1 % (15-50); MCH 29.1 pg (26.0-34.0); MCHC 32.2 g/dL (31.0-37.0); MCV 90.4 fL (80.0-100.0); MEAN PLATELET VOLUME 10.4 fL (7.4-10.4); NEUTROPHILS 51.1 % (40-80); RBC 3.64 10x6/uL (4.20-6.10); RDW 17.6 % (11.5-14.5); WBC 6.2 10x3/uL (4.8-10.8)
[2018-07-24 16:12] LABS: ALBUMIN 3.2 g/dL (3.4-5.0); ALKALINE PHOSPHATASE 52 U/L (46-116); ALT (SGPT) 24 U/L (10-68); BILIRUBIN - TOTAL 0.36 mg/dL (0.2-1.3); CALC OSMOLALITY 284 mosm/kg (275-300); CALCIUM 7.9 mg/dL (8.5-10.1); CARBON DIOXIDE 22.5 mmol/L (21.0-32.0); CHLORIDE - SERUM 108 mmol/L (98-107); CREATININE - SERUM 1.3 mg/dL (0.6-1.3); GLUCOSE 106 mg/dL (74-106); POTASSIUM - SERUM 3.3 mmol/L (3.5-5.1); PROTEIN - SERUM 6.3 g/dL (6.4-8.2); SODIUM 142 mmol/L (136-145); UREA NITROGEN 17 mg/dL (7-18); eGFR NON AFRICAN AMERICAN 57 mL/min (90-120)
[2018-07-24 16:24] LABS: CKMB 1.1 U/L (0.0-3.6); CREATINE KINASE 30 UL (21-232); PLATELET COUNT 113 10x3/uL (130-400); TROPONIN-I 0.023 ng/mL (0.000-0.060)
[2018-07-24 17:20] VITALS: BP 105/52
[2018-07-24 18:30] VITALS: BP 104/56
[2018-07-24] MEDS ORDERED: CLARITIN 10 MG10 MG PO (19:58)
[2018-07-24 19:59] VITALS: BP 105/59; BMI 25.6
[2018-07-24 20:58] VITALS: BP 116/55
[2018-07-25 00:56] VITALS: BP 118/48
[2018-07-25 05:07] LABS: HEMATOCRIT 31.4 % (42.0-54.0); MCH 29.2 pg (26.0-34.0); MCHC 31.8 g/dL (31.0-37.0); MCV 91.8 fL (80.0-100.0); MEAN PLATELET VOLUME 11.6 fL (7.4-10.4); PLATELET COUNT 123 10x3/uL (130-400); RBC 3.42 10x6/uL (4.20-6.10); RDW 17.7 % (11.5-14.5); WBC 5.1 10x3/uL (4.8-10.8)
[2018-07-25 05:18] LABS: EOSINOPHILS 3 % (0-7); LYMPHOCYTES 35 % (15-50); MONOCYTES 10 % (2-11); NEUTROPHILS 50 % (40-80); PLATELET ESTIMATE NORMAL
[2018-07-25 05:33] LABS: ANION GAP 14.2 mmol/L (8-16); CALCIUM 7.8 mg/dL (8.5-10.1); CARBON DIOXIDE 23.3 mmol/L (21.0-32.0); CREATININE - SERUM 1.4 mg/dL (0.6-1.3); MAGNESIUM - SERUM 1.5 mg/dL (1.8-2.4); PHOSPHOROUS 3.3 mg/dL (2.5-4.9); POTASSIUM - SERUM 3.5 mmol/L (3.5-5.1); TROPONIN-I 0.042 ng/mL (0.000-0.060)
[2018-07-25 09:12] VITALS: BP 144/57
[2018-07-25 11:25] VITALS: Ht 172.7 cm; Wt 75.8 kg
[2018-07-25 12:54] VITALS: BP 117/55
--- NOTE | 2018-07-25 16:12 | MORECARE ---
CASE MANAGEMENT DISCHARGE SUMMARY PATIENT: ANN ORTIZ UNIT: [id number] ADM DATE: 07/24/18 AGE: 73 : 44 SEX: M ROOM/BED: D.2125 AUTHOR: JUAN ANTONIO ARNOLD PHYSICIAN: REFERRING PHYSICIAN: KATE SIMMONS MD DATE OF SERVICE: 07/25/18 Discharge Plan Patient Name: ANN ORTIZ Facility: [facility]:[place] : 1945 Planned Disposition: Home Anticipated Discharge Date: 07/25/18 Discharge Date: Expected LOS: 1 Initial Reviewer: [email or web address] Initial Review Date: 07/24/2018 Generated: 07/25/18 5:12 pm Patient Name: ANN ORTIZ Page [phone] at 1612 All edits/amendments must be made on the electronic document DICTATION DATE: 07/25/18 161 MOVIE STUNT PERFORMER: ARNULFO 07/25/18 161 RPT#: [id number] DC DATE: STATUS: ADM IN [facility] [address] [place] [address] END OF REPORT
--- NOTE | 2018-07-25 16:19 | MORECARE ---
CASE MANAGEMENT DISCHARGE SUMMARY PATIENT: ANN ORTIZ UNIT: [id number] ADM DATE: 07/24/18 AGE: 73 : 44 SEX: M ROOM/BED: D.2125 AUTHOR: JUAN ANTONIO ARNOLD PHYSICIAN: REFERRING PHYSICIAN: KATE SIMMONS MD DATE OF SERVICE: 07/25/18 Discharge Plan Patient Name: ANN ORTIZ Facility: [facility]:[place] : 1945 Planned Disposition: Home Anticipated Discharge Date: 07/25/18 Discharge Date: 07/25/2018 Expected LOS: 1 Initial Reviewer: [email or web address] Initial Review Date: 07/24/2018 Generated: 07/25/18 5:19 pm DCPIA - Discharge Planning Initial Assessment Updated by [email or web address]: Sadie Jarrett on 07/25/18 4:14 pm * Is the patient Alert and Oriented? Yes * PCP DR ANN IN [place] * Pharmacy [facility] in [place] * Preadmission Environment Home with Family * ADLs Independent * Equipment Rolling Walker * Other Equipment denies any other DME * List name and contact numbers for known caregivers / representatives who currently or will assist patient after discharge: Lorena Ortiz- - [phone] * Verbal permission to speak to the caregivers and representatives has been obtained from the patient. Yes * Community resources currently utilized None * Please name any agencies selected above. n/a * Additional services required to return to the preadmission environment? No * Can the patient safely return to the preadmission environment? Yes * Has this patient been hospitalized within the prior 30 days at any hospital? Yes Last DP export: 07/25/18 3:12 p Patient Name: ANN ORTIZ Page [phone] at 1619 All edits/amendments must be made on the electronic document DICTATION DATE: 07/25/181617 ROTARY ROCK DRILLING MACHINE OPERATOR: ARNULFO 07/25/181617 RPT#: [id number] DC DATE:07/25/18 STATUS: DIS IN [facility] [address] [place] [address] END OF REPORT
--- NOTE | 2018-07-25 16:32 | MORECARE ---
CASE MANAGEMENT DISCHARGE SUMMARY PATIENT: NAN ORTIZ UNIT: [id number] ADM DATE: 07/24/18 AGE: 73 : 43 SEX: M ROOM/BED: D.5751 AUTHOR: CLAYTON,DOC PHYSICIAN: REFERRING PHYSICIAN: KATE SIMMONS MD DATE OF SERVICE: 07/25/18 Discharge Plan Patient Name: ANN ORTIZ Facility: [facility]:[place] : 1945 Planned Disposition: Home Anticipated Discharge Date: 07/25/18 Discharge Date: 07/25/2018 Expected LOS: 1 Initial Reviewer: [email or web address] Initial Review Date: 07/24/2018 Generated: 07/25/18 5:32 pm Comments DCP- Discharge Planning Updated by [email or web address]: Sadie Jarrett on 07/25/18 3:[address] CM VISITED WITH THE PATIENT AND HIS AT THE BEDSIDE TO DISCUSS DISCHARGE PLANNING AND NEEDS. PATIENT GAVE CM CONSENT TO DISCUSS CURRENT NEEDS WITH HIS , LORENA ORTIZ BEING PRESENT. PATIENT LIVES WITH HIS . IS INDEPENDENT IN HIS CARE. PATIENT UTILIZES A WALKER HE SUFFERED AN INJURY TO HIS RIGHT FOOT APPROXIMATELY 1 MONTH AGO. DENIES ANY HOME HEALTH OR COMMUNITY SERVICES. DENIES ANY ADDITIONAL DME NEEDS. HIS WILL PROVIDE TRANSPORTATION TO HOME. CM EXPLAINED IMPORTANT MESSAGE TO MEDICARE. SIGNATURE OBTAINED BY PER PATIENT'S INSTRUCTIONS. IMM SERVED. COPY TO THE PATIENT. SIGNED COPY TO HARD COVER CHART. DCPIA - Discharge Planning Initial Assessment Updated by [email or web address]: Sadie Jarrett on 07/25/18 4:14 pm * Is the patient Alert and Oriented? Yes * PCP DR ANN IN [place] * Pharmacy [facility] in [place] * Preadmission Environment Home with Family * ADLs Independent * Equipment Rolling Walker * Other Equipment denies any other DME * List name and contact numbers for known caregivers / representatives who currently or will assist patient after discharge: Lorena Ortiz- - [phone] * Verbal permission to speak to the caregivers and representatives has been obtained from the patient. Yes * Community resources currently utilized None * Please name any agencies selected above. n/a * Additional services required to return to the preadmission environment? No * Can the patient safely return to the preadmission environment? Yes * Has this patient been hospitalized within the prior 30 days at any hospital? Yes Coverage Notice Reviewer: [id number] Adán Jarrett Notice Issued Date-Time: 07/25/2018 15:55 Notice Type: IM Discharge Notice Notice Delivered To: Family Member Relationship to Patient: Spouse Ski Top Trimmer Name: LORENA ORTIZ Delivery Method: - Shilpa Days: Prior Verbal Notification: Recipient Understood Notice: Recipient Signature: Med Rec Note Co-signed by Attending: Coverage Notice Comment: Last DP export: 07/25/18 3:19 p Patient Name: ANN ORTIZ Page [id number] at 1632 All edits/amendments must be made on the electronic document DICTATION DATE: 07/25/18 163 FISHING GAME WARDEN: ARNULFO 07/25/18 163 RPT#: [id number] DC DATE:07/25/18 STATUS: DIS IN [facility] [address] [place] [address] END OF REPORT
--- NOTE | 2018-07-27 08:48 | MORECARE ---
CASE MANAGEMENT DISCHARGE SUMMARY PATIENT: ANN ORTIZ UNIT: [id number] ADM DATE: 07/24/18 AGE: 73 : 43 SEX: M ROOM/BED: D.8505 AUTHOR: CLAYTON,DOC PHYSICIAN: REFERRING PHYSICIAN: KATE SIMMONS MD DATE OF SERVICE: 07/27/18 Discharge Plan Patient Name: ANN ORTIZ Facility: [facility]:[place] : 1945 Planned Disposition: Home Anticipated Discharge Date: 07/25/18 Discharge Date: 07/25/2018 Expected LOS: 1 Initial Reviewer: [id number] Initial Review Date: 07/24/2018 Generated: 07/27/18 9:48 am Comments DCP- Discharge Planning Updated by [email or web address]: Sadie Jarrett on 07/25/18 3:[address] CM VISITED WITH THE PATIENT AND HIS AT THE BEDSIDE TO DISCUSS DISCHARGE PLANNING AND NEEDS. PATIENT GAVE CM CONSENT TO DISCUSS CURRENT NEEDS WITH HIS , LORENA ORTIZ BEING PRESENT. PATIENT LIVES WITH HIS . IS INDEPENDENT IN HIS CARE. PATIENT UTILIZES A WALKER HE SUFFERED AN INJURY TO HIS RIGHT FOOT APPROXIMATELY 1 MONTH AGO. DENIES ANY HOME HEALTH OR COMMUNITY SERVICES. DENIES ANY ADDITIONAL DME NEEDS. HIS WILL PROVIDE TRANSPORTATION TO HOME. CM EXPLAINED IMPORTANT MESSAGE TO MEDICARE. SIGNATURE OBTAINED BY PER PATIENT'S INSTRUCTIONS. IMM SERVED. COPY TO THE PATIENT. SIGNED COPY TO HARD COVER CHART. DCPIA - Discharge Planning Initial Assessment Updated by [id number]: Sadie Jarrett on 07/25/18 4:14 pm * Is the patient Alert and Oriented? Yes * PCP DR ANN IN [place] * Pharmacy [facility] in [place] * Preadmission Environment Home with Family * ADLs Independent * Equipment Rolling Walker * Other Equipment denies any other DME * List name and contact numbers for known caregivers / representatives who currently or will assist patient after discharge: Lorena Ortiz- - [phone] * Verbal permission to speak to the caregivers and representatives has been obtained from the patient. Yes * Community resources currently utilized None * Please name any agencies selected above. n/a * Additional services required to return to the preadmission environment? No * Can the patient safely return to the preadmission environment? Yes * Has this patient been hospitalized within the prior 30 days at any hospital? Yes Coverage Notice Reviewer: [id number] - Sadie Jarrett Notice Issued Date-Time: 07/25/2018 15:55 Notice Type: IM Discharge Notice Notice Delivered To: Family Member Relationship to Patient: Spouse School Bus Driver Name: LORENA ORTIZ Delivery Method: HAND - Hand Delivered Shilpa Days: Prior Verbal Notification: Recipient Understood Notice: Yes Recipient Signature: Yes Med Rec Note Co-signed by Attending: Coverage Notice Comment: CM EXPLAINED DISCHARGE IMM. PATIENT REQUEST HIS , LORENA, TO SIGN. NO QUESTIONS. HE IS ANXIOUS FOR DISCHARGE. COPY TO THE PATIENT. SIGNED COPY TO THE HARD COVER CHART. Last DP export: 07/25/18 3:32 p Patient Name: ANN ORTIZ Page [id number] at 0848 All edits/amendments must be made on the electronic document DICTATION DATE: 07/27/18 0848 CORD CUTTER: ARNULFO 07/27/18 0848 RPT#: [id number] DC DATE:07/25/18 STATUS: DIS IN [facility] [address] [place] [address] END OF REPORT
== END 2018-07-25 16:15 | disposition home or self-care (01) ==
LOC: D.ER 15:19 → D.M2 16:51 → OBSVTIME 16:52 → D.M2 07-25 16:15
PROVIDERS: Family Medicine; ADMIT Family Medicine; ATTEND Family Medicine
DX: R00.0 Tachycardia, unspecified (principal); I95.9 Hypotension, unspecified; I50.9 Heart failure, unspecified; J44.9 Chronic obstructive pulmonary disease, unspecified; E86.0 Dehydration; I48.91 Unspecified atrial fibrillation; I25.10 Atherosclerotic heart disease of native coronary artery without angina pectoris; Z85.79 Personal history of other malignant neoplasms of lymphoid, hematopoietic and related tissues